=== PATIENT | male | born 2000 | race Caucasian/White ===

== ENCOUNTER 2024-07-14 14:52 | Emergency (ER) | payer OTHER ==
[~2024-07-14] VITALS: Ht 172.7 cm; Wt 65.9 kg
[2024-07-14 14:53] VITALS: PULSE 95; TEMP 98; O2SAT 98
[2024-07-14] MEDS ORDERED: ketorolac trometh 15mg/ml vial 15 MG/ML ML IM ONE (15:05)
[2024-07-14 15:28] VITALS: RESP 16
[2024-07-14] MEDS: ketorolac trometh 30MG/ML vial 30 MG/ML VIAL IM ONE (15:28)
[2024-07-14] MEDS ORDERED: HYDR-3965 PO (15:40)
== END 2024-07-14 16:08 | disposition home or self-care (01) ==
LOC: ER 14:53
DX: S82.092A Other fracture of left patella, initial encounter for closed fracture (principal); M71.22 Synovial cyst of popliteal space [Baker], left knee; X58.XXXA Exposure to other specified factors, initial encounter; Y93.89 Activity, other specified; Y92.89 Other specified places as the place of occurrence of the external cause; Y99.8 Other external cause status
CPT/HCPCS: 96372; 99283; J1885